=== PATIENT | male | born 1965 | race Caucasian/White ===

== ENCOUNTER → 2016-08-04 | Outpatient (CLI) | payer MEDICARE, BC ==
--- NOTE | 2016-08-04 10:44 | US ---
EXAMINATION TYPE: US venous doppler duplex LE LT DATE OF EXAM: 08/04/2016 10:21 AM COMPARISON: NONE CLINICAL HISTORY: M25.562 PAIN IN LEFT KNEE. Left calf swelling x 10 days post left knee arthroscopy SIDE PERFORMED: Left VESSELS IMAGED: Common Femoral Vein Deep Femoral Vein Greater Saphenous Vein * Femoral Vein Popliteal Vein Small Saphenous Vein * Proximal Calf Veins (* superficial vessels) TECHNOLOGIST IMPRESSION: wnl Left Leg: Negative for DVT. Long fluid collection is noted spanning from left medial popliteal fossa distally towards lower calf > 14cm. Complex fluid area noted in upper portion of fluid. Tech finding s called to Marielle at Dr Gayle Up's Office Satisfactory color flow, phasicity, compressibility is seen in the left lower extremity at the above levels. There is elongated thin-walled fluid collection beginning in the posterior medial popliteal f brayden extending into the left calf. Mild to moderate overlying diffuse subcutaneous edema is present. Consider resolving hematoma. Differential also includes leaking popliteal cyst. IMPRESSION: As above.
== END | disposition home or self-care (01) ==
LOC: RADUSWWP 09:17
PROVIDERS: ATTEND Orthopaedic Surgery
DX: M25.562 Pain in left knee (principal)

== ENCOUNTER → 2019-07-19 | Outpatient (CLI) | payer MEDICARE, BC ==
[2019-07-19 10:19] LABS: Appearance,Urine Clear (Clear); Bacteria,Urine Rare /hpf; Bilirubin,Urine Negative (Negative); Blood,Urine Small (Negative); Color,Urine Yellow; Glucose,Urine (UA) Negative (Negative); Ketones,Urine Negative (Negative); Leukocyte Esterase,Urine Negative (Negative); Mucus,Urine Occasional /hpf; Nitrite,Urine Negative (Negative); PH, Urine 5.5 (5.0-8.0); Protein,Urine Trace (Negative); RBC,Urine 4 /hpf (0-5); Specific Gravity,Urine 1.021 (1.001-1.035); Urobilinogen,Urine <2.0 mg/dL (<2.0); WBC,Urine 2 /hpf (0-5)
== END | disposition home or self-care (01) ==
LOC: LABPAT 09:14
PROVIDERS: ATTEND Orthopaedic Surgery
DX: Z01.812 Encounter for preprocedural laboratory examination (principal); Z79.01 Long term (current) use of anticoagulants
CPT/HCPCS: 81001; 87070

== ENCOUNTER → 2019-10-26 | Outpatient (CLI) | payer MEDICARE, BC ==
[2019-10-26 11:45] LABS: Prothrombin Time 10.7 sec (9.0-12.0)
[2019-10-26 12:21] LABS: HCT 46.6 % (39.0-53.0); HGB 16.5 gm/dL (13.0-17.5); MCHC 35.4 g/dL (31.0-37.0); MCV 90.3 fL (80.0-100.0); Mean Platelet Volume 7.6; Platelet Count 229 k/uL (150-450); RBC 5.15 m/uL (4.30-5.90); RDW 12.6 % (11.5-15.5); WBC 6.8 k/uL (3.8-10.6)
[2019-10-26 12:25] LABS: ALT 19 U/L (4-49); AST 21 U/L (17-59); African American GFR (CKD) >90 (>60 ml/min/1.73 sqM); Albumin 4.3 g/dL (3.5-5.0); Alkaline Phosphatase 48 U/L (38-126); Anion Gap 8 mmol/L; Blood Urea Nitrogen 14 mg/dL (9-20); Calcium 9.2 mg/dL (8.4-10.2); Carbon Dioxide 27 mmol/L (22-30); Chloride 104 mmol/L (98-107); Glucose 94 mg/dL (74-99); Non-African American GFR(CKD) >90 (>60 ml/min/1.73 sqM); Potassium 3.7 mmol/L (3.5-5.1); Sodium 139 mmol/L (137-145); Total Bilirubin 0.6 mg/dL (0.2-1.3); Total Protein 7.2 g/dL (6.3-8.2)
[2019-10-26 14:18] LABS: Appearance,Urine Clear (Clear); Bilirubin,Urine Negative (Negative); Blood,Urine Trace (Negative); Color,Urine Yellow; Glucose,Urine (UA) Negative (Negative); Hyaline Casts,Urine 1 /lpf (0-2); Ketones,Urine Negative (Negative); Leukocyte Esterase,Urine Negative (Negative); Mucus,Urine Moderate /hpf; Nitrite,Urine Negative (Negative); PH, Urine 5.5 (5.0-8.0); Protein,Urine Trace (Negative); RBC,Urine 4 /hpf (0-5); Specific Gravity,Urine 1.028 (1.001-1.035); Squamous Epithelial Cell,Urine <1 /hpf (0-4); Urobilinogen,Urine <2.0 mg/dL (<2.0); WBC,Urine 2 /hpf (0-5)
== END | disposition home or self-care (01) ==
LOC: LABPAT 10:27
PROVIDERS: ATTEND Orthopaedic Surgery
DX: Z01.818 Encounter for other preprocedural examination (principal); Z01.812 Encounter for preprocedural laboratory examination
CPT/HCPCS: 80053; 81001; 85027; 85610; 85730; 87070

== ENCOUNTER 2019-11-01 10:01 | Day surgery (SDC) | payer MEDICARE, BC ==
[2019-10-31 09:02] VITALS: BMI 33.7
[~2019-11-01 10:01] MED LIST: ACETAMINOPHEN TAB 500 MG TAB PO ONE; CLINDAMYCIN 900 MG in DEXTROSE 5% IN WATER 50 ML IVPB ONE; DEXAMETHASONE SOD PHOSPHATE 10 MG/ML 1 ML VIAL IV ONE; GABAPENTIN 300 MG CAP PO ONE; HYDROmorphone 0.5 MG/0.5 ML SYRINGE IVP PRN; LIDOCAINE 1% (10MG/ML) FOR IV START INTRADERMA PRN; MELOXICAM 7.5 MG TAB PO ONE; ONDANSETRON 4 MG/2 ML VIAL IVP ONE; SCOPOLAMINE 1.5MG/72HR PATCH TRANSDERM ONE; TRANEXAMIC ACID 1,000 MG in SODIUM CHLORIDE 0.9% 100 ML IVPB ONE
[2019-11-01] MEDS: LACTATED RINGERS 1,000 ML IV SCH (10:44)
[2019-11-01] MEDS ORDERED: MIDAZOLAM 2 MG/2 ML VIAL IV ONE (10:54)
[2019-11-01] MEDS ORDERED: HYDROmorphone 1 MG/ML 1 ML SYRINGE IVP PRN (11:18)
[2019-11-01] MEDS ORDERED: ONDANSETRON 4 MG/2 ML VIAL IVP PRN (11:18)
[2019-11-01] MEDS ORDERED: BISACODYL 10 MG SUPP RECTAL PRN (11:18)
[2019-11-01] MEDS ORDERED: NA PHOS,M-B/NA PHOS,DI-BA 133 ML ENEMA RECTAL PRN (11:18)
[2019-11-01] MEDS ORDERED: HYDROcodone/APAP 5-325MG 1 EACH TAB PO PRN ×2 (11:18)
[2019-11-01] MEDS ORDERED: NALOXONE 0.4 MG/ML 1 ML VIAL IV PRN (11:18)
[2019-11-01] MEDS ORDERED: MAGNESIUM HYDROXIDE 2,400 MG/10 ML CUP PO PRN (11:18)
[2019-11-01] MEDS ORDERED: HYDROmorphone 0.5 MG/0.5 ML SYRINGE IVP PRN ×2 (11:18)
[2019-11-01] MEDS ORDERED: DIAZEPAM 5 MG TAB PO PRN (11:18)
[2019-11-01] MEDS ORDERED: hydrOXYzine PAMOATE 25 MG CAP PO PRN (11:18)
--- NOTE | 2019-11-01 11:19 | P.ANPRN ---
Procedure Note - Anesthesia - Nerve Block Performed Left Adductor Canal Infusion Date of Procedure: 11/01/19 Procedure Start Time: 10:52 Procedure Stop Time: 11:00 Location of Patient: PreOp Indication: Acute Post-Operative Pain, Requested by Surgeon Sedation Type: Sedate with meaningful contact maintained Preparation: Sterile Prep, Sterile Dressing Position: Supine Catheter: Indwelling Needle Types: Pajunk Needle Gauge: 21 Ultrasound used to visualize needle placement: Yes Ultrasound used to observe medication spread: Yes Blood Aspirated: No Pain Paresthesia on Injection Noted: No Resistance on Injection: Normal Image Stored and Saved: Yes Events: Uneventful and Well Tolerated (Ropivacaine0.5% 25 mls)
[2019-11-01] MEDS ORDERED: ROPIVACAINE 0.2%-NS ON-Q PUMP 1,090 MG, EMPTY PAIN BALL 1 EACH MISCELLANE PRN (11:20)
[2019-11-01] MEDS ORDERED: MIDAZOLAM 2 MG/2 ML VIAL ONE (11:53)
[2019-11-01] MEDS ORDERED: TRANEXAMIC ACID 1,000 MG/10 ML VIAL ONE (11:53)
[2019-11-01] MEDS ORDERED: PROPOFOL 10 MG/ML 20 ML VIAL IV ONE (11:53)
[2019-11-01] MEDS ORDERED: fentaNYL (PF) 50 MCG/ML 2 ML AMP ONE (11:53)
[2019-11-01] MEDS ORDERED: hydrALAZINE HCL 20 MG/ML 1 ML VIAL ONE (11:53)
[2019-11-01] MEDS ORDERED: SODIUM CHLORIDE 0.9% 100 ML BAG ONE (11:53)
[2019-11-01] MEDS ORDERED: ceFAZolin 3,000 MG in SODIUM CHLORIDE 0.9% IRRIGATIO 3,000 ML IRRIGATION ONE (11:56)
[2019-11-01] MEDS: ROPIVACAINE 246.25 MG, EPINEPHrine 0.5 MG, KETOROLAC 30 MG, cloNIDine HCL/PF 80 MCG, WA... MISCELLANE ONE ×10 (12:21→12:49)
[2019-11-01] MEDS ORDERED: LACTATED RINGERS 1,000 ML IV ONE (12:27)
--- NOTE | 2019-11-01 13:18 | P.OP ---
Date of Procedure: 11/01/19 Preoperative Diagnosis: Severe osteoarthritis left knee Postoperative Diagnosis: Severe osteoarthritis left knee Procedure(s) Performed: Left total knee arthroplasty utilizing visionaire patient specific guides Implants: Gordon and Nephew Cruciate Retaining Journey II CR Oxinium Femoral Component size 7, left Gordon & Nephew Journey Nonporous Tibial Baseplate size 6, left Gordon [employer] Nephew Journey II CR, XLPE Articular Insert, 10 mm, size 5-6 Gordon & Nephew Ese II Resurfacing Patellar Component, Oval, 32 mm All components were cemented using Palacose R bone cement. Visionaire patient specific guides The articulation is Oxinium on polyethylene. Anesthesia: spinal Surgeon: Naren Up Molecular Geneticist #1: Tammy Sena Estimated Blood Loss (ml): 50 Pathology: other (Bone and cartilage) Condition: stable Disposition: PACU Indications for Procedure: After failure of conservative treatment we discussed the surgical and nonsurgical treatment options at length. Patient wishes to proceed with a total knee arthroplasty. Complications specific to this procedure were discussed at length, including but not limited to infection, bleeding, stiffness, and nerve injury. Covid-19 was also discussed at length with the patient, and they are aware of the current policies and procedures. The patient was given the option of delaying surgery, but they elect to proceed knowing these risks. Patient is aware of all these complications and informed consent was obtained Operative Findings: The operative findings are consistent with severe osteoarthritis of the left knee Description of Procedure: Patient was seen in the preoperative area consent was reviewed and operative site was marked with a skin marker. An adductor canal pain catheter was placed by anesthesia in the preoperative area. Patient was then brought to the operating room and given preoperative antibiotics intravenously. A spinal anesthetic was administered by the anesthesia department. A tourniquet was placed on the upper thigh and the lower extremity was prepped and draped in usual sterile fashion. A gram of transexamic acid was given. A universal timeout was then performed which confirmed the patient's name, surgical site, ALLERGIES, and consent. The lower extremity was then exsanguinated and tourniquet was inflated to 250 mmHg. A standard and anterior midline approach to the knee was performed. The skin and subcutaneous tissue was dissected down to the patellar tendon. A medial parapatellar arthrotomy was then performed. The knee was then extended, the patellar was everted, and the knee was again flexed. Anterior horns of both menisci were excised, and a release was performed to the posterior medial aspect of the knee. On gross visual inspection, there was complete loss of articular cartilage in the medial and patellofemoral joint spaces. There was also significant cartilage damage in the lateral compartment. There were multiple periarticular osteophytes. The patient specific guide was placed on the distal femur, and pinned in place. Using the patient specific guide, the distal femoral cut was performed. The cutting block was then removed and the cut was checked for flatness. The appropriate 5-in-1 cutting block was then pinned in place through the holes that were drilled through the patient specific guide. The anterior condyles were cut without notching. The posterior and chamfer cuts were performed while protecting the collateral ligaments. The cutting block was then removed. Attention was then directed to the tibia. The remaining ACL was removed with a Ronguer, and the tibia was then gently subluxed forward with a large bent knee retractor. Any remaining menisci was excised. The posterior lateral corner was cauterized in order to cauterize the lateral geniculate artery. The patient specific guide for the tibia was then placed and was held in place with pins. Pinholes were then placed for rotation of the tibial component as well. Proximal tibia was then cut and sized. Next trials were then placed with the appropriate-sized insert. The knee was able to fully extend and flex to 130 and was stable throughout all range of motion. The knee was then extended, patella everted. Patella was then measured, and then using an osteotomy guide, the patella was cut at the appropriate level. The patella was then measured and drilled and the patella trial was then placed. The knee was then taken through range of motion with the patella trial and the patella tracked normally. The knee was then extended patella trial was then removed and the patella was everted. Knee was then flexed and lug holes were drilled through the femoral trial and the femoral trial was then removed. The tibial was then exposed, and the tibial broach guide was then pinned in place after it was set for the appropriate rotation to allow for the most coverage without overhang. The tibia was then reamed and broached. The cut surfaces of bone were then irrigated with pulsatile lavage. The posterior structures were injected with the ropivacaine solution. The knee was also irrigated with Irrisept solution. The components were then opened, the cement was mixed, and the components were then cemented in place. The cement was allowed to harden with the knee in full extension. While the cement was hardening, the remaining soft tissues were then injected with a ropivacaine solution, which consisted of 246.25 mg of ropivacaine, 0.5 mg of epinephrine, 30 mg of Toradol, 80 g of clonidine, and 48.45 mL of sterile water, for a total of 100 mL of fluid injected. After the cemented hardened. The tourniquet was released, and hemostasis was obtained. A second gram of transexamic acid was given. The knee was again irrigated. The knee was again taken through range of motion and found to be stable throughout all range of motion of 0-130, and the patella tracked normally. The fascia was then closed with #2 strata fix suture. The subcutaneous tissue was closed with 3-0 Vicryl and 3-0 strata fix. Dermabond glue was used for the skin and placed with the knee in flexion. The patient was placed in a sterile silver dressing. Patient was then transferred to recovery room in stable condition. The licensed physical therapist assistant GRECIA Cronin was required due the complexity surgery and the need for a skilled salesperson surgical appliances. She assisted in positioning, draping, retraction, and closure of the wound.
--- NOTE | 2019-11-01 13:47 | XR ---
EXAMINATION TYPE: XR knee limited LT DATE OF EXAM: 11/01/2019 COMPARISON: None HISTORY: Postop knee replacement TECHNIQUE: 2 view left knee FINDINGS: Tibial and femoral components of in place. No acute fractures are evident. Postsurgical guera nges are present. IMPRESSION: 1. No acute fractures post knee replacement.
[2019-11-01] MEDS: SODIUM CHLORIDE 0.9% 1,000 ML IV SCH ×3 (14:54→23:38)
[2019-11-01] MEDS: CLINDAMYCIN 900 MG in DEXTROSE 5% IN WATER 50 ML IVPB SCH ×4 (17:58→23:39)
[2019-11-01] MEDS: ASPIRIN 325 MG TAB PO SCH (20:48)
[2019-11-01] MEDS ORDERED: SENNOSIDES-DOCUSATE SODIUM 1 EACH TAB PO SCH (21:00)
[2019-11-01] MEDS ORDERED: ESCITALOPRAM 5 MG TAB PO SCH (21:00)
--- NOTE | 2019-11-02 01:30 | P.CONS ---
History of Present Illness - Reason for Consult Consult date: 11/01/19 Medical management - Chief Complaint Elective left total knee arthroplasty - History of Present Illness Patient is a 54-year-old male with a known history of hypertension, osteoarthritis and previous history of right total knee arthroplasty x2 and obesity was admitted to hospital for left total knee arthroplasty. Currently patient is lying in the bed comfortably. Denied any complaints of chest pain or shortness breath. denied any left leg pain currently. On morphine pump. No complaints of dizziness or lightheadedness. No nausea vomiting or abdominal pain or diarrhea. Postoperatively patient's blood pressure is on the lower side. Patient did take his Cardizem and hydrochlorothiazide dose this morning. Review of Systems Constitutional: Patient denies any fever or chills . No generalized weakness or weight loss. Abdomen: Patient denied nausea vomiting and diarrhea and abdominal pain. Cardiovascular: Patient denies any chest pain or short of breath no palpitations. Respiratory: patient denied any cough is from production. No shortness of breath Neurologic: Patient denied any numbness or tingling headache. Musculoskeletal: Patient denies any complaints of joint swelling or deformity. Skin: negative Psychiatric: Negative Endocrine: No heat or cold intolerance. No recent weight gain. Genitourinary: No dysuria or hematuria. All other 14 point ROS negative except the above Past Medical History Past Medical History: Hypertension, Osteoarthritis (OA) Additional Past Medical History / Comment(s): . History of Any Multi-Drug Resistant Organisms: None Reported Past Surgical History: Hernia Repair, Joint Replacement, Orthopedic Surgery Additional Past Surgical History / Comment(s): ARTHROSCOPIES RT KNEE x 3, RT KNEE REPLACED X2, arthroscopy left knee, Past Anesthesia/Blood Transfusion Reactions: Previous Problems w/ Anesthesia Additional Past Anesthesia/Blood Transfusion Reaction / Comm: HAD POST OP ITCHING AFTER ONE SURGERY Smoking Status: Never smoker - Past Family History Mother Family Medical History: No Reported History Medications and Allergies Home Medications Medication Instructions Recorded Confirmed Type Diltiazem HCl [Cartia Xt] 300 mg PO DAILY 08/02/19 11/01/19 History Escitalopram [Lexapro] 5 mg PO HS 08/02/19 11/01/19 History Fluticasone Nasal [place] [Flonase 1 spray EA NOSTRIL DAILY 08/02/19 11/01/19 History Nasal [place]] Diclofenac Sodium Gel [Voltaren 2 gm TOPICAL DIRECTED PRN 10/31/19 11/01/19 History Gel] Hydrochlorothiazide 12.5 mg PO DAILY 10/31/19 11/01/19 History Loratadine [Claritin] 10 mg PO DAILY 10/31/19 11/01/19 History Naproxen Sodium [Aleve] 220 mg PO Q12HR PRN 10/31/19 11/01/19 History Allergies Allergy/AdvReac Type Severity Reaction Status Date / Time cephalexin monohydrate Allergy Severe Dyspnea Verified 11/01/19 10:25 [From Keflex] Penicillins Allergy Severe Dyspnea Verified 11/01/19 10:25 Physical Exam Vitals: Vital Signs Temp Pulse Pulse Resp BP BP Pulse Ox 11/01/19 14:15 74 16 115/65 100 11/01/19 14:00 69 16 115/65 99 11/01/19 13:45 74 18 122/74 94 L 11/01/19 13:30 97.7 F 98 16 141/75 93 L 11/01/19 11:09 78 16 146/86 100 11/01/19 10:55 77 18 152/85 100 11/01/19 10:28 97.1 F L 71 18 125/84 96 Intake and Output 10/31/19 11/01/19 11/01/19 22:59 06:59 14:59 Intake Total 1577 Output Total 50 Balance 1527 Intake: IV 1577 Output: Estimated Blood Loss 50 Other: Weight 107 kg PHYSICAL EXAMINATION: Patient is lying in the bed comfortably, no acute distress, awake alert and oriented.. HEENT: Normocephalic. Neck is supple. Pupils reactive. Nostrils clear. Oral cavity is moist. Ears reveal no drainage. Neck reveals no JVD, carotid bruits, or thyromegaly. CHEST EXAMINATION: Trachea is central. Symmetrical expansion. Lung campa clear to auscultation and percussion. CARDIAC: Normal S1, S2 with no gallops. No murmurs ABDOMEN: Soft. Bowel sounds normal. No organomegaly. No abdominal bruits. right upperinner thighabscess with purulent drainage and surrounding redness, swelling and induration. Moderate tenderness. Extremities: reveal no edema. No clubbing or cyanosis Neurologically awake, alert, oriented x3 with well-coordinated movements. No focal deficits noted Skin: No rash or skin lesions. Psychiatric: Coperative. Nonsuicidal Musculoskeletal: No joint swelling or deformity.Left knee surgical site is intact. Bandage. Decreased range of motion. Assessment and Plan Assessment: Status post left total knee arthroplasty. POD #0 Osteoarthritis History of right total knee arthroplasty x2 Hypertension currently controlled DVT prophylaxis Obesity with BMI 33.8 Plan: Patient will be continued pain management, bowel regimen and DVT prophylaxis. Encourage ambulation and incentive spirometry. PT OT will be consulted. Monitor H&H and follow-up labs tomorrow. Further recommendations based on clinical course. Thank you for your consult.
[2019-11-02] MEDS: LACTATED RINGERS 1,000 ML IV SCH (06:14)
--- NOTE | 2019-11-02 06:44 | P.PN ---
Progress Note - Text Progress Note Date: 11/02/19 The patient is doing well status post total knee replacement. Pain is well con trolled by a combination of local anesthetic infusion through the adductor canal catheter and oral analgesics. There are no signs of infection around the catheter skin entry site. I interviewed the patient while he was walking in the hallway with no pain complaints. The local anesthetic infusion will be continued as per protocol.
[2019-11-02 07:59] LABS: Basophils % (A) 0 %; Eosinophils % (A) 0 %; HCT 41.7 % (39.0-53.0); HGB 14.1 gm/dL (13.0-17.5); Lymphocytes % (A) 4 %; MCH 31.1 pg (25.0-35.0); MCHC 33.7 g/dL (31.0-37.0); MCV 92.2 fL (80.0-100.0); Mean Platelet Volume 7.8; Monocytes # (A) 1.2 k/uL (0-1.0); Monocytes % (A) 6 %; Neutrophils % (A) 89 %; Platelet Count 219 k/uL (150-450); RBC 4.52 m/uL (4.30-5.90); RDW 12.6 % (11.5-15.5); WBC 22.5 k/uL (3.8-10.6)
[2019-11-02 08:02] VITALS: BP 135/84; RESP 18; TEMP 97.6
[2019-11-02] MEDS: ASPIRIN 325 MG TAB PO SCH (08:08)
[2019-11-02 08:54] VITALS: PULSE 77
--- NOTE | 2019-11-02 08:56 | P.DS ---
Providers Expected date of discharge: 11/02/19 Attending physician: Naren Up Consults: 11/01/19 11:18 Consult Physician Routine Consulting Provider: Katelyn Mac Consult Reason/Comments: medical management Do you want consulting provider notified?: Yes Primary care physician: Rafael Marcos - Discharge Diagnosis(es) (1) Osteoarthritis of left knee Current Visit: Yes Status: Acute (2) Status post total left knee replacement Current Visit: Yes Status: Acute Hospital Course: This is a 54-year-old male with known history of degenerative arthritis of the left knee. The patient presents for evaluation. After discussion and consideration patient elected to proceed with total knee arthroplasty. The patient is seen preoperatively by Dr. Up and medically cleared for surgery by their primary care physician. Patient is admitted to [facility] on 11/01/2019 for total knee arthroplasty. The procedures performed without complication or sequelae. The patient is doing well postoperatively. Labs and vital signs are stable on day of discharge. On day of discharge patient's knee incision is healing well. There is minimal erythema. There is no drainage noted at this time. There is minimal soft tissue swelling to the knee. Patient has full foot and ankle motion without difficulty or pain. Calf is soft and nontender to palpation. Neurovascular status to the left lower extremity is intact. Patient is discharged home in good condition. Opioid start talking form is reviewed and signed at patient bedside. Please see med rec for accurate list of home medications. Plan - Discharge Summary Discharge Rx Participant: Yes New Discharge Prescriptions: New Aspirin 325 mg PO BID #60 tab HYDROcodone/APAP 5-325MG [[place] 5-325] 1 - 2 tab PO Q6HR PRN #56 tab PRN Reason: Pain Sennosides [Senokot] 2 tab PO DAILY PRN #60 tablet PRN Reason: Constipation No Action Diltiazem HCl [Cartia Xt] 300 mg PO DAILY Escitalopram [Lexapro] 5 mg PO HS Fluticasone Nasal [place] [Flonase Nasal [place]] 1 spray EA NOSTRIL DAILY Loratadine [Claritin] 10 mg PO DAILY Hydrochlorothiazide 12.5 mg PO DAILY Naproxen Sodium [Aleve] 220 mg PO Q12HR PRN PRN Reason: Pain Diclofenac Sodium Gel [Voltaren Gel] 2 gm TOPICAL DIRECTED PRN PRN Reason: Pain Discharge Medication List Diltiazem HCl [Cartia Xt] 300 mg PO DAILY 08/02/19 [History] Escitalopram [Lexapro] 5 mg PO HS 08/02/19 [History] Fluticasone Nasal [place] [Flonase Nasal [place]] 1 spray EA NOSTRIL DAILY 08/02/19 [History] Diclofenac Sodium Gel [Voltaren Gel] 2 gm TOPICAL DIRECTED PRN 10/31/19 [History] Hydrochlorothiazide 12.5 mg PO DAILY 10/31/19 [History] Loratadine [Claritin] 10 mg PO DAILY 10/31/19 [History] Naproxen Sodium [Aleve] 220 mg PO Q12HR PRN 10/31/19 [History] Aspirin 325 mg PO BID #60 tab 11/02/19 [Rx] HYDROcodone/APAP 5-325MG [[place] 5-325] 1 - 2 tab PO Q6HR PRN #56 tab 11/02/19 [Rx] Sennosides [Senokot] 2 tab PO DAILY PRN #60 tablet 11/02/19 [Rx] Follow up Appointment(s)/Referral(s): Naren Up DO [Doctor of Osteopathic Medicine] - 1 Week Patient Instructions/Handouts: *Surgery [facility] - On-Q Pain Pump Discharge Instructions, Knee Replacement (DC) Activity/Diet/Wound Care/Special Instructions: Weightbearing as tolerated with a walker. CPM 5-6h daily. Leave dressing intact. May be removed by home care nurse or by patient in 10 days. May shower with dressing on. Recommend use of compression stockings daily until follow up to help prevent swelling and blood clots. May remove at night before sleeping. Please follow up with [facility] and call with any questions or concerns, . Discharge Disposition: HOME WITH HOME HEALTH SERVICES
[2019-11-02] MEDS ORDERED: LORATADINE 10 MG TAB PO SCH (09:00)
[2019-11-02] MEDS ORDERED: DILTIAZEM CD 300 MG CAP.ER.24H PO SCH (09:00)
[2019-11-02] MEDS ORDERED: FLUTICASONE 50MCG/SPRAY NASAL 16GM EA NOSTRIL SCH (09:00)
[2019-11-02] MEDS ORDERED: MELOXICAM 7.5 MG TAB PO SCH (09:00)
--- NOTE | 2019-11-02 16:35 | P.PN ---
Subjective Progress Note Date: 11/02/19 Principal diagnosis: Patient is a 54-year-old male with a known history of hypertension, osteoarthritis and previous history of right total knee arthroplasty x2 and obesity was admitted to hospital for left total knee arthroplasty. Currently patient is lying in the bed comfortably. Denied any complaints of chest pain or shortness breath. denied any left leg pain currently. On morphine pump. No complaints of dizziness or lightheadedness. No nausea vomiting or abdominal pa in or diarrhea. Postoperatively patient's blood pressure is on the lower side. Patient did take his Cardizem and hydrochlorothiazide dose this morning. 11/02/2019 Patient is seen and evaluated in follow-up with no acute overnight issues. Patient underwent left total knee arthroplasty with Dr. Up yesterday. Currently no reports of chest pain, shortness of breath, or palpitations. Patient is afebrile. No reports of nausea or vomiting and patient is tolerating diet. Patient states he is passing gas although has not had a bowel movement yet. Patient's home medications will be resumed. Patient will be continuing with home care and physical therapy and then outpatient physical therapy as needed. Patient does have a subcutaneous epidural pain pump noted and states his pain is being managed. Patient states he is being discharged today. Objective - Vital Signs Vital signs: Vital Signs Temp 97.6 F 11/02/19 07:00 Pulse 77 11/02/19 08:00 Resp 18 11/02/19 08:00 BP 135/84 11/02/19 07:00 Pulse Ox 96 11/02/19 07:00 Intake & Output 11/01/19 11/02/19 11/02/19 18:59 06:59 18:59 Intake Total 1577 Output Total 50 375 Balance 1527 -375 Weight 107 kg Intake: IV 1577 Output: Urine 375 Estimated Blood Loss 50 Other: Voiding Method Urinal Urinal # Voids 1 1 - Exam Patient is sitting up in the bed comfortably, no acute distress, awake alert and oriented.. HEENT: Normocephalic. Neck is supple. Pupils reactive. Nostrils clear. Oral cavity is moist. Ears reveal no drainage. Neck reveals no JVD, carotid bruits, or thyromegaly. CHEST EXAMINATION: Trachea is central. Symmetrical expansion. Lung campa clear to auscultation and percussion. CARDIAC: Normal S1, S2 with no gallops. No murmurs ABDOMEN: Soft. Bowel sounds normal. No organomegaly. No abdominal bruits. Extremities: reveal no edema. No clubbing or cyanosis Neurologically awake, alert, oriented x3 with well-coordinated movements. No focal deficits noted Skin: No rash or skin lesions. Psychiatric: Cooperative. Non-suicidal Musculoskeletal: No joint swelling or deformity. Left knee surgical site is intact. Bandage. Normal range of motion noted today. Subcutaneous epidural pump noted also - Labs CBC & Chem 7: 11/02/19 06:50 Labs: Abnormal Lab Results - Last 24 Hours (Table) 11/02/19 Range/Units 06:50 WBC 22.5 H (3.8-10.6) k/uL Neutrophils # 20.0 H (1.3-7.7) k/uL Monocytes # 1.2 H (0-1.0) k/uL Assessment and Plan Assessment: Status post left total knee arthroplasty. POD #1 Osteoarthritis History of right total knee arthroplasty x2 Hypertension currently controlled DVT prophylaxis Obesity with BMI 33.8 Plan: Patient will be continued pain management, bowel regimen and DVT prophylaxis. Encourage ambulation and incentive spirometry. PT/OT evaluated the patient stating outpatient physical therapy would be of benefit. Hemoglobin is stable at 14.1 this morning. Further recommendations based on clinical course. We'll continue to follow with orthopedic surgery and hospitalization. Home medications are being resumed. Patient states he is being discharged today.
== END 2019-11-02 10:57 | disposition home health service (06) ==
LOC: OR 10:01 → 4SSUR 13:26 → OR 11-02 10:57
PROVIDERS: ATTEND Orthopaedic Surgery
DX: M17.12 Unilateral primary osteoarthritis, left knee (principal); I10 Essential (primary) hypertension; F41.9 Anxiety disorder, unspecified; Z96.651 Presence of right artificial knee joint; E66.9 Obesity, unspecified; Z68.33 Body mass index [BMI] 33.0-33.9, adult; Z82.49 Family history of ischemic heart disease and other diseases of the circulatory system; Z88.1 Allergy status to other antibiotic agents; Z79.1 Long term (current) use of non-steroidal anti-inflammatories (NSAID); Z79.899 Other long term (current) drug therapy; Z88.0 Allergy status to penicillin
CPT/HCPCS: 27447; 97161; 64448; 76942; 85025; 88300; 73560; C1713; C1776; J2250; J0171; J0360; J1100; J2405; J0690; J3010; J1885; J2795 ×2; J2704; J0735

== ENCOUNTER 2022-08-05 11:10 | Inpatient (IN) | payer MEDICARE, BC ==
[2022-07-29 16:21] VITALS: BMI 35.2
[~2022-08-05 11:10] MED LIST changes: -ACETAMINOPHEN TAB 500 MG TAB PO ONE; +ACETAMINOPHEN TAB 500 MG TAB PO PRN; -CLINDAMYCIN 900 MG in DEXTROSE 5% IN WATER 50 ML IVPB ONE; -DEXAMETHASONE SOD PHOSPHATE 10 MG/ML 1 ML VIAL IV ONE; -GABAPENTIN 300 MG CAP PO ONE; +GABAPENTIN 300 MG CAP PO PRN; -LIDOCAINE 1% (10MG/ML) FOR IV START INTRADERMA PRN; -MELOXICAM 7.5 MG TAB PO ONE; +MELOXICAM 7.5 MG TAB PO PRN; -SCOPOLAMINE 1.5MG/72HR PATCH TRANSDERM ONE; -TRANEXAMIC ACID 1,000 MG in SODIUM CHLORIDE 0.9% 100 ML IVPB ONE; +TRANEXAMIC ACID IN NACL,ISO-OS 1,000 MG in SALINE 1 100ML.BAG IVPB PRN
[2022-08-05] MEDS ORDERED: LIDOCAINE 1% (10MG/ML) FOR IV START INTRADERMA ONE (12:25)
[2022-08-05] MEDS: LACTATED RINGERS 1,000 ML IV SCH ×2 (12:25→21:48)
[2022-08-05] MEDS ORDERED: DEXAMETHASONE SOD PHOSPHATE 4 MG/ML 1 ML VIAL IV ONE (12:55)
[2022-08-05] MEDS ORDERED: fentaNYL (PF) 50 MCG/ML 2 ML AMP IV ONE ×2 (13:21→13:35)
[2022-08-05] MEDS ORDERED: MIDAZOLAM 2 MG/2 ML VIAL IV ONE (13:21)
[2022-08-05] MEDS ORDERED: CLINDAMYCIN 900 MG in DEXTROSE 5% IN WATER 50 ML IVPB STA ×2 (13:25)
[2022-08-05] MEDS ORDERED: SODIUM CHLORIDE 0.9% (PF) 10 ML VIAL ONE (13:33)
[2022-08-05] MEDS ORDERED: MIDAZOLAM 2 MG/2 ML VIAL ONE (13:33)
[2022-08-05] MEDS ORDERED: PROPOFOL 10 MG/ML 20 ML VIAL IV ONE (13:33)
[2022-08-05] MEDS ORDERED: fentaNYL (PF) 50 MCG/ML 2 ML AMP ONE (13:33)
[2022-08-05] MEDS ORDERED: ROPIVACAINE 5 MG/ML 30 ML VIAL ONE (13:33)
[2022-08-05] MEDS ORDERED: PHENYLEPHRINE-0.9% NACL SYG 1,000 MCG/10 ML SYRINGE ONE (13:33)
[2022-08-05] MEDS ORDERED: TRANEXAMIC ACID IN NACL,ISO-OS 1,000 MG/100 ML BAG ONE (13:33)
[2022-08-05] MEDS ORDERED: ONDANSETRON 4 MG/2 ML VIAL IVP PRN (13:49)
[2022-08-05] MEDS ORDERED: NA PHOS,M-B/NA PHOS,DI-BA 133 ML ENEMA RECTAL PRN (13:49)
[2022-08-05] MEDS ORDERED: HYDROmorphone 0.5 MG/0.5 ML SYRINGE IVP PRN ×2 (13:49)
[2022-08-05] MEDS ORDERED: MAGNESIUM HYDROXIDE 2,400 MG/10 ML CUP PO PRN (13:49)
[2022-08-05] MEDS ORDERED: HYDROmorphone 1 MG/ML 1 ML SYRINGE IVP PRN (13:49)
[2022-08-05] MEDS ORDERED: bisacodyL 10 MG SUPP RECTAL PRN (13:49)
[2022-08-05] MEDS ORDERED: NALOXONE 0.4 MG/ML 1 ML VIAL IV PRN (13:49)
[2022-08-05] MEDS ORDERED: HYDROcodone/APAP 7.5-325MG 1 EACH TAB PO PRN ×2 (13:51)
--- NOTE | 2022-08-05 14:14 | P.ANPRN ---
Procedure Note - Anesthesia - Nerve Block Performed Left Adductor Canal Infusion Time Out Performed: Yes (1321) Date of Procedure: 08/05/22 Procedure Start Time: : Procedure Stop Time: : Location of Patient: PreOp Indication: Acute Post-Operative Pain, Requested by Surgeon Specifically requested for management of pain by DrStephanie: Naren Up Sedation Type: Sedate with meaningful contact maintained Preparation: Sterile Prep, Sterile Dressing Position: Supine Catheter: None Needle Types: Pajunk Needle Gauge: 18 Ultrasound used to visualize needle placement: Yes Ultrasound used to observe medication spread: Yes Injectate: 0.5% Ropivacaine (see comment for volume) (15cc+ 5cc nacl pf) Blood Aspirated: No Pain Paresthesia on Injection Noted: No Resistance on Injection: Normal Image Stored and Saved: Yes Events: Uneventful and Well Tolerated
--- NOTE | 2022-08-05 14:15 | P.ANPRN ---
Procedure Note - Anesthesia - Nerve Block Performed Left iPack Single Time Out Performed: Yes ([id number]) Date of Procedure: 08/05/22 Procedure Start Time: Procedure Stop Time: Location of Patient: PreOp Indication: Acute Post-Operative Pain, Requested by Surgeon Specifically requested for management of pain by DrStephanie: Naren Up Sedation Type: Sedate with meaningful contact maintained Preparation: Sterile Prep Position: Supine Catheter: None Needle Types: Pajunk Needle Gauge: 21 Ultrasound used to visualize needle placement: Yes Ultrasound used to observe medication spread: Yes Injectate: 0.5% Ropivacaine (see comment for volume) (15cc+5cc nacl pf) Blood Aspirated: No Pain Paresthesia on Injection Noted: No Resistance on Injection: Normal Image Stored and Saved: Yes Events: Uneventful and Well Tolerated
--- NOTE | 2022-08-05 14:26 | P.OP ---
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 He has subsequently developed posterior instability and on exam is felt that his posterior cruciate ligament has lost function. Surgical nonsurgical treatment options discussed at length, I recommended exchange and his cruciate retaining liner for a deep dish polyethylene liner in order to accommodate his deficient PCL. Patient is agreeable to this informed consent was obtained. Operative Findings: The operative findings are consistent with a posterior cruciate ligament deficient knee. The implants were all found to be stable. Description of Procedure: Patient was seen in the preoperative area and the consent was reviewed and the operative site was marked with a skin marker. The patient verified the procedure and the operative site. An adductor canal pain catheter and an IPACK block were placed by anesthesia in the preoperative area. The patient was then brought to the operating room and positioned on the operating room table in the supine position. Preoperative antibiotics and a gram of transexamic acid were given intravenously. A spinal anesthetic was administered by the anesthesia department. Care was taken to make sure that all pressure points were adequately padded. A tourniquet was placed on the upper thigh and the lower extremity was prepped with ChloraPrep and draped in usual sterile fashion. A universal timeout was then performed which confirmed the patient's name, surgical site, ALLERGIES, and consent. The lower extremity was then exsanguinated and tourniquet was inflated to 250 mmHg. A standard anterior midline approach to the knee was performed. The prior scar was excised. The skin and subcutaneous tissue were sharply dissected down to the patellar tendon. A medial parapatellar arthrotomy was then performed. The knee was then extended, the patellar was everted, and the knee was flexed. The knee was then inspected and the femoral and tibial components were found be well fixed. The CR tibial insert was then easily removed with an osteotome. The knee was then trialed with a deep dished insert which significantly improved anterior posterior stability of the knee. The trial was then removed and the final implant was impacted with component locking being confirmed. The knee was taken through a full range of motion and found to have good medial lateral and anterior posterior stability throughout range of motion from 0-130. A second gram of transexamic acid was given intravenously. The knee was again irrigated. The knee was again taken through range of motion and found to be stable throughout all range of motion of 0-130, and the patella tracked normally. The fascia was then closed with 0 Vicryl followed by #2 strata fix suture. The subcutaneous tissue was closed with 3-0 Vicryl and 3-0 strata fix. Exofin glue was used for the skin and placed with the knee in flexion. After the glue had dried, and Optafoam silver impregnated dressing was applied. A lightly compressive dressing was applied using web roll and Angel wrap. Patient was then transferred to the stretcher and taken to recovery room in stable condition. Sponge and needle counts were correct. The central supply assistant GRECIA Cronin was required due the complexity surgery and the need for a skilled surgical elastic knitter hand frame. She assisted in positioning, draping, retraction, and closure of the wound.
[2022-08-05] MEDS ORDERED: LACTATED RINGERS 1,000 ML IV ONE (15:06)
[2022-08-05] MEDS ORDERED: ROPIVACAINE 1,100 MG, SODIUM CHLORIDE 0.9% 500 ML 330 ML, EMPTY PAIN BALL 1 EACH MISCELLANE PRN ×2 (15:21)
--- NOTE | 2022-08-05 15:45 | XR ---
EXAMINATION TYPE: XR knee limited LT DATE OF EXAM: 08/05/2022 3:40 PM INDICATION: Patient age:Male; 57 years old; Reason for study: Evaluation for Postop abnormality and alignment; [facility]. COMPARISON: Left knee radiographs 11/01/2019 TECHNIQUE: The Left knee(s) was examined in frontal and crosstable lateral projections. FINDINGS: Post surgical changes from left total knee arthroplasty. The distal femoral and proximal tibial components appear intact with appropriate alignment. There is associated soft tissue gas and e koffi. No acute fracture or dislocation. IMPRESSION: Postsurgical changes from left total knee arthroplasty. Hardware appears intact with appropriate alig nment.
--- NOTE | 2022-08-05 18:27 | P.CONS ---
History of Present Illness - Reason for Consult Consult date: 08/05/22 Radical management Requesting physician: Naren Up - History of Present Illness History of Presenting Illness: Patient is a very pleasant 57-year-old male with a past medical history of hypertension and osteoarthritis status post multiple previous orthopedic surgeries. He is currently admitted under orthopedic surgery team status post elective left total knee arthroplasty completed by Dr. Up. We have been consulted for medical management throughout patient's hospitalization. Patient seen and fully evaluated at bedside. He currently denies having any complaints. He reports postoperative pain is currently controlled he is still having slight numbness in left lower extremity from nerve block received during surgical procedure. Patient denies having any headache, lightheadedness, dizziness, chest pain, palpitations, shortness of breath, or experiencing any other complaints at this time. He denies having any postoperative nausea or vomiting and denies having any history of DVT or PE. Review of systems: Pertinent positives and negatives as discussed in HPI, a complete review of syst ems was performed and all other systems are negative. Physical exam: Vital signs reviewed and stable. General: Nontoxic, no distress and appears stated age. Derm: Skin warm and dry, normal coloration for ethnicity. Head: Atraumatic, normocephalic and symmetric. Eyes: EOMs intact, no lid lag, and anicteric sclera Mouth: no lip lesions, mucus membranes moist Cardiovascular: regular rate and rhythm with normal S1S2, no murmur, positive posterior tibial pulses bilaterally, and cap refill < 2 seconds. Lungs: Respirations even, regular, and unlabored on room air. Lungs CTA bilaterally, no rhonchi, no rales, no wheezing, and no accessory muscle usage. Abdominal: soft, nontender to palpation, no guarding, no appreciable organomegaly Ext: Movement and sensation intact. No gross muscle atrophy, no edema, no contractures. Postoperative Dressing in place to left lower extremity. Neuro: Speech clear, face symmetrical and CN II-XII grossly intact with no noted focal neuro deficits Psych: Alert and oriented to person, place, time, and situation. Appropriate and pleasant affect. Assessment and Plan of Care: Status post left total knee arthroplasty -DVT prophylaxis, pain management, wound/dressing care, weightbearing, and PT/OT per primary admitting orthopedic surgery team. -Currently DVT prophylaxis with MITUL hose and SCDs. -Previous labs reviewed. Preoperative CBC and CMP were unremarkable. Preoperative hemoglobin was 16.3. Order morning CBC and BMP to follow up on postoperative labs. Hypertension -Blood Pressures have been running soft after surgery with current BP 110/70. Preoperative blood pressure 157/90 and postoperatively systolic pressure ranging from 107-110 systolic and 66-70 diastolic. Order placed for patient to resume Cardizem 300 mg daily and hydrochlorothiazide 25 mg daily tomorrow morning. Thank you for allowing us to participate in the care of this pleasant patient. Do not hesitate to contact us with questions. Someone can be reached from the [facility] hospitalist group all hours of the day at [phone] or via [employer]. Flash Loera NP rendered care for this patient independently, reviewed the findings and plan as documented in the note above. I did not physically speak with or examine the patient on this date. Past Medical History Past Medical History: Hypertension, Osteoarthritis (OA) Additional Past Medical History / Comment(s): . History of Any Multi-Drug Resistant Organisms: None Reported Past Surgical History: Hernia Repair, Joint Replacement, Orthopedic Surgery Additional Past Surgical History / Comment(s): ARTHROSCOPIES RT KNEE x 3, RT KNEE REPLACED X2, arthroscopy left knee, LT TKA X 2 Past Anesthesia/Blood Transfusion Reactions: Previous Problems w/ Anesthesia Additional Past Anesthesia/Blood Transfusion Reaction / Comm: HAD POST OP ITCHING AFTER ONE SURGERY Smoking Status: Never smoker - Past Family History Mother Family Medical History: No Reported History Father Family Medical History: Cancer Medications and Allergies Home Medications Medication Instructions Recorded Confirmed Type Escitalopram [Lexapro] 5 mg PO HS 08/02/19 07/29/22 History dilTIAZem HCL [Cartia Xt] 300 mg PO DAILY 08/02/19 08/05/22 History Naproxen Sodium [Aleve] 220 mg PO Q12HR PRN 10/31/19 07/29/22 History hydroCHLOROthiazide 12.5 mg PO DAILY 10/31/19 07/29/22 History Aspirin 325 mg PO BID #60 tab 08/05/22 Rx HYDROcodone/APAP 7.5-325MG [[place] 1 - 2 tab PO Q6H PRN #32 tab 08/05/22 Rx 7.5-325] Sennosides [Senokot] 2 tab PO DAILY PRN #60 tablet 08/05/22 Rx Allergies Allergy/AdvReac Type Severity Reaction Status Date / Time cephalexin monohydrate Allergy Severe Dyspnea Verified 07/29/22 16:12 [From Keflex] Penicillins Allergy Severe Dyspnea Verified 07/29/22 16:12 Physical Exam Osteopathic Statement: *. No significant issues noted on an osteopathic structural exam other than those noted in the History and Physical/Consult. Vitals: Vital Signs Temp Pulse Pulse Resp BP Pulse Ox 08/05/22 15:45 59 L 16 110/70 95 08/05/22 15:30 50 L 16 107/69 95 08/05/22 15:15 52 L 16 110/70 95 08/05/22 15:00 52 L 16 108/67 92 L 08/05/22 14:55 96.9 F L 65 12 107/66 92 L 08/05/22 13:35 71 16 133/78 92 L 08/05/22 12:16 97.7 F 66 16 157/90 97 Intake and Output 08/05/22 08/05/22 08/05/22 06:59 14:59 22:59 Intake Total 1056 Output Total 30 Balance 1026 Intake: IV 1056 Output: Estimated Blood Loss 30 Other: Weight 105.3 kg
[2022-08-05] MEDS: CLINDAMYCIN 900 MG in DEXTROSE 5% IN WATER 50 ML IVPB SCH ×2 (18:35)
[2022-08-05] MEDS: ASPIRIN 325 MG TAB PO SCH (20:27)
[2022-08-05] MEDS ORDERED: SENNOSIDES-DOCUSATE SODIUM 1 EACH TAB PO SCH (21:00)
[2022-08-05] MEDS ORDERED: ESCITALOPRAM 5 MG TAB PO SCH (21:00)
[2022-08-05] MEDS: SODIUM CHLORIDE 0.9% 1,000 ML IV SCH (21:48)
[2022-08-05] MEDS ORDERED: HYDROcodone/APAP 5-325MG 1 EACH TAB PO PRN (21:49)
[2022-08-05] MEDS: HYDROcodone/APAP 5-325MG 1 EACH TAB PO PRN (22:12)
[2022-08-06] MEDS: CLINDAMYCIN 900 MG in DEXTROSE 5% IN WATER 50 ML IVPB SCH ×2 (01:54)
[2022-08-06] MEDS: SODIUM CHLORIDE 0.9% 1,000 ML IV SCH (05:29)
[2022-08-06] MEDS: HYDROcodone/APAP 5-325MG 1 EACH TAB PO PRN (06:34)
--- NOTE | 2022-08-06 07:08 | P.PN ---
Progress Note - Text Progress Note Date: 08/06/22 Postoperative day # 1 status post total knee arthroplasty, and adductor canal catheter placed for postoperative analgesia, currently at ropivacaine 0.2% 8 mL per hour and continuous infusion, visual analogue scale is 3/10, patient using oral pain medication for breakthrough pain. Assessment and plan= Acute postoperative pain, adductor canal catheter for pain control, pain is well controlled we'll continue the same management.
--- NOTE | 2022-08-06 07:47 | P.DS ---
Providers Date of admission: 08/05/22 11:44 Expected date of discharge: 08/06/22 Attending physician: Naren Up Consults: 08/05/22 13:49 Consult Physician Routine Consulting Provider: Daysi Sanford Consult Reason/Comments: medical management Do you want consulting provider notified?: Yes Primary care physician: Rafael Marcos - Discharge Diagnosis(es) (1) Status post revision of total replacement of left knee Current Visit: Yes Status: Acute (2) Status post total left knee replacement Current Visit: No Status: Acute Hospital Course: This is a 57-year-old [] who was last seen with complaint of continued left knee pain. The patient has a known history of Total left knee arthroplasty in the past with polyethylene wear and presents to discuss surgical options. After discussion and consideration the patient elects to proceed with Revision total left knee arthroplasty/ poly-exchange. The patient is seen preoperatively by His PCP and cleared for surgery. The patient is admitted to [facility] for Revision total left knee arthroplasty/Poly-exchange. The procedures performed without complication or sequelae. He is doing well postoperatively. Vital signs are stable at discharge. Labs are stable at discharge. the patient is ambulating well with walker with minimal assistance. The patient is discharged to home on postop day #1 pending medical clearance. Please see orders and refer to the [facility] rec for accurate list of medications. Patient Condition at Discharge: Good Plan - Discharge Summary Discharge Rx Participant: No New Discharge Prescriptions: New Sennosides [Senokot] 2 tab PO DAILY PRN #60 tablet PRN Reason: Constipation Aspirin 325 mg PO BID #60 tab HYDROcodone/APAP 7.5-325MG [[place] 7.5-325] 1 - 2 tab PO Q6H PRN #32 tab PRN Reason: Pain No Action dilTIAZem HCL [Cartia Xt] 300 mg PO DAILY Escitalopram [Lexapro] 5 mg PO HS hydroCHLOROthiazide 12.5 mg PO DAILY Naproxen Sodium [Aleve] 220 mg PO Q12HR PRN PRN Reason: Pain Discharge Medication List Escitalopram [Lexapro] 5 mg PO HS 08/02/19 [History] dilTIAZem HCL [Cartia Xt] 300 mg PO DAILY 08/02/19 [History] Naproxen Sodium [Aleve] 220 mg PO Q12HR PRN 10/31/19 [History] hydroCHLOROthiazide 12.5 mg PO DAILY 10/31/19 [History] Aspirin 325 mg PO BID #60 tab 08/05/22 [Rx] HYDROcodone/APAP 7.5-325MG [[place] 7.5-325] 1 - 2 tab PO Q6H PRN #32 tab 08/05/22 [Rx] Sennosides [Senokot] 2 tab PO DAILY PRN #60 tablet 08/05/22 [Rx] Follow up Appointment(s)/Referral(s): Naren Up DO [Doctor of Osteopathic Medicine] - 2 Weeks Activity/Diet/Wound Care/Special Instructions: Weightbearing as tolerated with walker. CPM 5-6 hours a day as tolerated. Leave dressing intact. Dressing may be removed by home care nurse or by patient in 7 days. Then change dressing twice daily until follow up. May shower with initial dressing intact and after removal. If dressing become saturated, please remove. Please take aspirin 325mg twice daily for 30 days to prevent blood clots. Recommend use of compression stockings daily until follow up to help prevent swelling and blood clots. May remove at night before sleeping. Please follow-up with [facility] in 2 weeks and call with any questions or concerns, . Discharge Disposition: HOME WITH HOME HEALTH SERVICES
[2022-08-06 08:52] LABS: Basophils % (A) 0 %; Eosinophils % (A) 0 %; HCT 45.4 % (39.0-53.0); Lymphocytes # (A) 1.2 k/uL (1.0-4.8); Lymphocytes % (A) 7 %; MCH 31.1 pg (25.0-35.0); MCHC 35.1 g/dL (31.0-37.0); MCV 88.7 fL (80.0-100.0); Mean Platelet Volume 7.6; Monocytes # (A) 0.9 k/uL (0-1.0); Monocytes % (A) 5 %; Neutrophils # (A) 15.3 k/uL (1.3-7.7); Neutrophils % (A) 87 %; Platelet Count 251 k/uL (150-450); RBC 5.12 m/uL (4.30-5.90); RDW 12.5 % (11.5-15.5); WBC 17.5 k/uL (3.8-10.6)
[2022-08-06] MEDS ORDERED: DILTIAZEM CD 300 MG CAP.ER.24H PO SCH (09:00)
[2022-08-06] MEDS ORDERED: hydroCHLOROthiazide 12.5 MG CAP PO SCH (09:00)
[2022-08-06 09:24] VITALS: BP 129/74; PULSE 81; RESP 18; TEMP 98.4
[2022-08-06 09:27] LABS: African American GFR (CKD) 95.1 (60.0-200.0); Anion Gap 12.3 mmol/L (10.00-18.00); BUN/Creat Ratio 15.3 Ratio (12.00-20.00); Blood Urea Nitrogen 15.3 mg/dL (9.0-27.0); Calcium 9.4 mg/dL (8.7-10.3); Carbon Dioxide 22.7 mmol/L (20.0-27.5)
[2022-08-06] MEDS: ASPIRIN 325 MG TAB PO SCH (09:31)
--- NOTE | 2022-08-06 13:23 | P.PN ---
Subjective Progress Note Date: 08/06/22 History of Presenting Illness: Patient is a very pleasant 57-year-old male with a past medical history of hypertension and osteoarthritis status post multiple previous orthopedic surgeries. He is currently admitted under orthopedic surgery team status post elective left total knee arthroplasty completed by Dr. Up. We have been consulted for medical management throughout patient's hospitalization. Physical exam: Patient seen and fully evaluated at bedside this morning. Patient reports feeling great this morning, he has been ambulating with PT/OT and even successfully completed the stairs. Patient denies having any concerns or complaints at this time. Vital signs reviewed and stable. General: Nontoxic, no distress and appears stated age. Derm: Skin warm and dry, normal coloration for ethnicity. Head: Atraumatic, normocephalic and symmetric. Eyes: EOMs intact, no lid lag, and anicteric sclera Mouth: no lip lesions, mucus membranes moist Cardiovascular: regular rate and rhythm with normal S1S2, no murmur, positive posterior tibial pulses bilaterally, and cap refill < 2 seconds. Lungs: Respirations even, regular, and unlabored on room air. Lungs CTA bilaterally, no rhonchi, no rales, no wheezing, and no accessory muscle usage. Abdominal: soft, nontender to palpation, no guarding, no appreciable organomegaly Ext: Movement and sensation intact. No gross muscle atrophy, no edema, no c ontractures. Postoperative Dressing in place to left lower extremity. Neuro: Speech clear, face symmetrical and CN II-XII grossly intact with no noted focal neuro deficits Psych: Alert and oriented to person, place, time, and situation. Appropriate and pleasant affect. Assessment and Plan of Care: Status post left total knee arthroplasty -DVT prophylaxis, pain management, wound/dressing care, weightbearing, and PT/OT per primary admitting orthopedic surgery team. -Currently DVT prophylaxis with MITUL hose and SCDs. Postoperative leukocytosis -Morning labs reviewed. CBC revealing leukocytosis with WBC count of 17.5 and a normal hemoglobin of 16.0 and platelet count of 251. Preoperative WBCs 8.37 and postoperative WBCs 17.5. Patient showing no signs of infection. Acute leukocytosis believed to be reactive from surgical procedure. Patient is medically stable at this time and free from any complaints. Patient given prescription for repeat CBC to be completed in 3 days to ensure improvement/resolution of acute leukocytosis. Results to be sent to PCP and orthopedic surgeon for follow-up. Hypertension -Blood Pressures stable. Morning BP 129/74. Patient to continue with current antihypertensive medication regimen with Cardizem 300 mg daily and hydrochlorothiazide 25 mg daily tomorrow morning. No need for medication changes at this time. Thank you for allowing us to participate in the care of this pleasant patient. Do not hesitate to contact us with questions. Someone can be reached from the [facility] hospitalist group all hours of the day at [phone] or via [employer]. Flash Loera NP rendered care for this patient independently, reviewed the findings and plan as documented in the note above. I did not physically speak with or examine the patient on this date. Objective - Vital Signs Vital signs: Vital Signs Temp 97.9 F 08/06/22 02:00 Pulse 73 08/06/22 02:00 Resp 16 08/06/22 02:00 BP 120/53 08/06/22 02:00 Pulse Ox 95 08/06/22 02:00 FiO2 Intake & Output 08/05/22 08/06/22 08/06/22 18:59 06:59 18:59 Intake Total 1536 Output Total 30 Balance 1506 Weight 105.3 kg Intake: IV 1056 Oral 480 Output: Urine 0 Estimated Blood Loss 30 Other: # Voids 2 - Labs CBC & Chem 7: 08/06/22 06:49 08/06/22 06:49
== END 2022-08-06 13:51 | disposition home health service (06) | DRG 489 ==
LOC: EDSTATUS 11:10 → 2ORMAIN 11:44 → 4SSUR 15:57
PROVIDERS: ADMIT Orthopaedic Surgery; ATTEND Orthopaedic Surgery
PROC: 0SUW09Z Supplement Left Knee Joint, Tibial Surface with Liner, Open Approach (ICD-10-PCS; 2022-08-05)
PROC: 3E0T3BZ Introduction of Anesthetic Agent into Peripheral Nerves and Plexi, Percutaneous Approach (ICD-10-PCS; 2022-08-05)
PROC: 0SPD09Z Removal of Liner from Left Knee Joint, Open Approach (ICD-10-PCS; principal; 2022-08-05 13:25)
DX: T84.023A Instability of internal left knee prosthesis, initial encounter (principal); D72.829 Elevated white blood cell count, unspecified; I10 Essential (primary) hypertension; M19.90 Unspecified osteoarthritis, unspecified site; Y79.2 Prosthetic and other implants, materials and accessory orthopedic devices associated with adverse incidents; Z96.653 Presence of artificial knee joint, bilateral; Z79.899 Other long term (current) drug therapy; Z79.82 Long term (current) use of aspirin; Z88.1 Allergy status to other antibiotic agents; Z88.0 Allergy status to penicillin
CPT/HCPCS: 64448; 64999; 76942; 80048; 85025

== ENCOUNTER 2022-08-06 21:26 | Emergency (ER) | payer MEDICARE, BC ==
[2022-08-06] MEDS ORDERED: SODIUM CHLORIDE 0.9% 1,000 ML IV ONE (21:37)
[2022-08-06 21:38] VITALS: BP 157/79; PULSE 73; RESP 18; TEMP 98.5
[2022-08-06] MEDS ORDERED: KETOROLAC 15 MG/ML 1 ML VIAL IVP STA (21:38)
[2022-08-06] MEDS ORDERED: DEXAMETHASONE SOD PHOSPHATE 10 MG/ML 1 ML VIAL IVP STA (21:38)
[2022-08-06 22:15] LABS: Basophils % (A) 0 %; Eosinophils # (A) 0.1 k/uL (0-0.7); Eosinophils % (A) 0 %; HCT 46.9 % (39.0-53.0); HGB 16.4 gm/dL (13.0-17.5); Lymphocytes # (A) 1.8 k/uL (1.0-4.8); Lymphocytes % (A) 11 %; MCH 30.6 pg (25.0-35.0); MCHC 34.9 g/dL (31.0-37.0); MCV 87.8 fL (80.0-100.0); Mean Platelet Volume 7.4; Monocytes # (A) 0.9 k/uL (0-1.0); Monocytes % (A) 6 %; Neutrophils # (A) 13.5 k/uL (1.3-7.7); Neutrophils % (A) 82 %; Platelet Count 251 k/uL (150-450); RBC 5.34 m/uL (4.30-5.90); RDW 12.5 % (11.5-15.5); WBC 16.5 k/uL (3.8-10.6)
[2022-08-06 22:27] LABS: ALT 27 U/L (4-49); AST 21 U/L (17-59); African American GFR (CKD) >90 (>60 ml/min/1.73 sqM); Albumin 4.2 g/dL (3.5-5.0); Alkaline Phosphatase 54 U/L (38-126); Anion Gap 12 mmol/L; Blood Urea Nitrogen 12 mg/dL (9-20); Calcium 8.8 mg/dL (8.4-10.2); Carbon Dioxide 27 mmol/L (22-30); Chloride 99 mmol/L (98-107); Glucose 108 mg/dL (74-99); Non-African American GFR(CKD) >90 (>60 ml/min/1.73 sqM); Potassium 3.7 mmol/L (3.5-5.1); Sodium 138 mmol/L (137-145); Total Bilirubin 0.5 mg/dL (0.2-1.3); Total Protein 6.9 g/dL (6.3-8.2)
[2022-08-06 23:11] LABS: Erythrocyte Sedimentation Rate 2 mm/hr (0-15)
--- NOTE | 2022-08-07 00:08 | ED ---
General Adult HPI - General Chief complaint: Headache Stated complaint: Headache Time Seen by Provider: 08/06/22 21:36 Source: patient, EMS Mode of arrival: EMS Limitations: no limitations - History of Present Illness Initial comments: This is a 57-year-old male who presents emergency department for a right-sided headache. The patient did present via EMS. The patient did undergo a right knee replacement and revision 25 hours ago and stated that he was just discharged home at 2:30 in the afternoon. The patient stated that when he got home he had continued right-sided neck and right-sided head pain associated with pain behind the right eye. The patient denied any lightheadedness or dizziness as well as any nausea and vomiting. The patient did state that he does not normally have headaches but stated this headache was severe. The patient denied any numbness or tingling or any pain over the spine. The patient also denied any pain in his left knee. The patient was resting in bed comfortably. - Related Data Home Medications Medication Instructions Recorded Confirmed Escitalopram [Lexapro] 5 mg PO HS 08/02/19 07/29/22 dilTIAZem HCL [Cartia Xt] 300 mg PO DAILY 08/02/19 08/05/22 Naproxen Sodium [Aleve] 220 mg PO Q12HR PRN 10/31/19 07/29/22 hydroCHLOROthiazide 12.5 mg PO DAILY 10/31/19 07/29/22 Previous Rx's Medication Instructions Recorded Aspirin 325 mg PO BID #60 tab 08/05/22 HYDROcodone/APAP 7.5-325MG [[place] 1 - 2 tab PO Q6H PRN #32 tab 08/05/22 7.5-325] Sennosides [Senokot] 2 tab PO DAILY PRN #60 tablet 08/05/22 Allergies Allergy/AdvReac Type Severity Reaction Status Date / Time cephalexin monohydrate Allergy Severe Dyspnea Verified 07/29/22 16:12 [From Keflex] Penicillins Allergy Severe Dyspnea Verified 07/29/22 16:12 Review of Systems ROS Statement: Those systems with pertinent positive or pertinent negative responses have been documented in the HPI. ROS Other: All systems not noted in ROS Statement are negative. Past Medical History Past Medical History: Hypertension, Osteoarthritis (OA) Additional Past Medical History / Comment(s): . History of Any Multi-Drug Resistant Organisms: None Reported Past Surgical History: Hernia Repair, Joint Replacement, Orthopedic Surgery Additional Past Surgical History / Comment(s): ARTHROSCOPIES RT KNEE x 3, RT KNEE REPLACED X2, arthroscopy left knee, LT TKA X 2 Past Anesthesia/Blood Transfusion Reactions: Previous Problems w/ Anesthesia Additional Past Anesthesia/Blood Transfusion Reaction / Comment(s): HAD POST OP ITCHING AFTER ONE SURGERY Past Psychological History: Anxiety Smoking Status: Never smoker - Past Family History Mother Family Medical History: No Reported History Father Family Medical History: Cancer General Exam Limitations: no limitations General appearance: alert, in no apparent distress Head exam: Present: atraumatic, normocephalic, normal inspection, other (Patient had tenderness noted to the right side of scalp, right temporal area as well as the right paraspinal muscles in the cervical spine.) Eye exam: Present: normal appearance, PERRL Pupils: Present: normal accommodation ENT exam: Present: normal exam, normal oropharynx, mucous membranes moist Neck exam: Present: normal inspection, full ROM Respiratory exam: Present: normal lung sounds bilaterally Cardiovascular Exam: Present: regular rate, normal rhythm, normal heart sounds GI/Abdominal exam: Present: soft, normal bowel sounds Extremities exam: Present: normal inspection, full ROM, other (Left knee bandaged without any signs of erythema or induration or drainage.) Back exam: Present: normal inspection, full ROM. Absent: tenderness, CVA tenderness (R), CVA tenderness (L), paraspinal tenderness, vertebral tenderness Neurological exam: Present: alert, oriented X3, CN II-XII intact Psychiatric exam: Present: normal affect, normal mood Skin exam: Present: warm, dry Course Vital Signs 08/06/22 21:33 Temperature 98.5 F Pulse Rate 73 Respiratory 18 Rate Blood Pressure 157/79 O2 Sat by Pulse 96 Oximetry Medical Decision Making - Medical Decision Making Was pt. sent in by a medical professional or institution (, PA, FIELD TRAINING MANAGER, urgent care, hospital, or residential...) When possible be specific @ -No Did you speak to anyone other than the patient for history (EMS, parent, family, police, friend...)? What history was obtained from this source @ -Yes, EMS and patient's Did you review nursing and triage notes (agree or disagree)? Why? @ -I reviewed and agree with nursing and triage notes Were old charts reviewed (outside hosp., previous admission, EMS record, old EKG, old radiological studies, urgent care reports/EKG's, residential records)? Report findings @ -No old charts were reviewed Differential Diagnosis (chest pain, altered mental status, abdominal pain women, abdominal pain men, vaginal bleeding, weakness, fever, dyspnea, syncope, headache, dizziness, GI bleed, back pain, seizure, CVA, palpatations, mental health)? @ -Headache, muscle strain, migraine EKG interpreted by me (3pts min.). @ -None X-rays interpreted by me (1pt min.). @ -None done CT interpreted by me (1pt min.). @ -None done U/S interpreted by me (1pt. min.). @ -None done What testing was considered but not performed or refused? (CT, X-rays, U/S, labs)? Why? @ -None What meds were considered but not given or refused? Why? @ -None Did you discuss the management of the patient with other professionals (professionals i.e. , PA, FIELD TRAINING MANAGER, lab, RT, psych nurse, social media coordinator, machine stacker, teacher, armoured corps officer, window caser)? Give summary @ -No Was smoking cessation discussed for >3mins.? @ -No Was critical care preformed (if so, how long)? @ -No Were there social determinants of health that impacted care today? How? (Homelessness, low income, unemployed, alcoholism, drug addiction, transportation, low edu. Level, literacy, decrease access to med. care, skilled nursing, rehab)? @ -No Was there de-escalation of care discussed even if they declined (Discuss DNR or withdrawal of care, Hospice)? DNR status @ -No What co-morbidities impacted this encounter? (DM, HTN, Smoking, COPD, CAD, Cancer, CVA, ARF, Chemo, Hep., AIDS, mental health diagnosis, sleep apnea, morbid obesity)? @ -Recent left knee replacement Was patient admitted / discharged? Hospital course, mention meds given and route, prescriptions, significant lab abnormalities, going to OR and other pertinent info. @ -The patient was seen and evaluated emergency department. Physical exam, the patient only had mild right-sided paraspinal tenderness over the cervical spine as well as right-sided temporal tenderness. The patient denied of any concerning signs including any back pain nor any numbness or tingling noted. The patient also denied any urinary or fecal incontinence. The patient was likely suffering from a headache and therefore was given a dose of Toradol and Decadron as well as fluids in the emergency department. On reevaluation, the patient had significant improvement of his headache and was deemed stable for discharge. The patient also had a swab for COVID-19, influenza and RSV which was negative. The patient was advised to continue take his medications as prescribed and to follow-up with his surgeon as previously scheduled. The patient was also advised report back to the emergency department if he had worsening pain. The patient was agreeable to this and all his questions were answered. The patient was discharged home in stable condition. Undiagnosed new problem with uncertain prognosis? @ -No Drug Therapy requiring intensive monitoring for toxicity (Heparin, Nitro, Insulin, Cardizem)? @ -No Were any procedures done? @ -No Diagnosis/symptom? @ -Headache, NOS Acute, or Chronic, or Acute on Chronic? @ -Acute Uncomplicated (without systemic symptoms) or Complicated (systemic symptoms)? @ -Uncomplicated Side effects of treatment? @ -No Exacerbation, Progression, or Severe Exacerbation? @ -No Poses a threat to life or bodily function? How? (Chest pain, [place], AR, pneumonia, PE, COPD, DKA, ARF, appy, cholecystitis, CVA, Diverticulitis, Homicidal, Suicid al, threat to staff... and all critical care pts) @ -No - Lab Data Result diagrams: 08/06/22 22:03 08/06/22 22:03 Lab Results 08/06/22 08/06/22 08/06/22 Range/Units 22:03 22:03 22:54 WBC 16.5 H (3.8-10.6) k/uL RBC 5.34 (4.30-5.90) m/uL Hgb 16.4 (13.0-17.5) gm/dL Hct 46.9 (39.0-53.0) % MCV 87.8 (80.0-100.0) fL MCH 30.6 (25.0-35.0) pg MCHC 34.9 (31.0-37.0) g/dL RDW 12.5 (11.5-15.5) % Plt Count 251 (150-450) k/uL MPV 7.4 Neutrophils % 82 % Lymphocytes % 11 % Monocytes % 6 % Eosinophils % 0 % Basophils % 0 % Neutrophils # 13.5 H (1.3-7.7) k/uL Lymphocytes # 1.8 (1.0-4.8) k/uL Monocytes # 0.9 (0-1.0) k/uL Eosinophils # 0.1 (0-0.7) k/uL Basophils # 0.0 (0-0.2) k/uL ESR 2 (0-15) mm/hr Sodium 138 (137-145) mmol/L Potassium 3.7 (3.5-5.1) mmol/L Chloride 99 (98-107) mmol/L Carbon Dioxide 27 (22-30) mmol/L Anion Gap 12 mmol/L BUN 12 (9-20) mg/dL Creatinine 0.80 (0.66-1.25) mg/dL Est GFR (CKD-EPI)AfAm >90 (>60 ml/min/1.73 sqM) Est GFR (CKD-EPI)NonAf >90 (>60 ml/min/1.73 sqM) Glucose 108 H (74-99) mg/dL Calcium 8.8 (8.4-10.2) mg/dL Magnesium 2.0 (1.6-2.3) mg/dL Total Bilirubin 0.5 (0.2-1.3) mg/dL AST 21 (17-59) U/L ALT 27 (4-49) U/L Alkaline Phosphatase 54 (38-126) U/L Total Protein 6.9 (6.3-8.2) g/dL Albumin 4.2 (3.5-5.0) g/dL Influenza Type A (PCR) Not Detected (Not Detectd) Influenza Type B (PCR) Not Detected (Not Detectd) RSV (PCR) Not Detected (Not Detectd) SARS-CoV-2 (PCR) Not Detected (Not Detectd) Disposition Clinical Impression: Headache Disposition: HOME SELF-CARE Condition: Stable Instructions (If sedation given, give patient instructions): Acute Headache (ED) Is patient prescribed a controlled substance at d/c from ED?: No Referrals: Rafael Marcos DO [Primary Care Provider] - 1-2 days Time of Disposition: 23:30
== END 2022-08-07 04:18 | disposition home or self-care (01) ==
LOC: EC 21:26
DX: R51.9 Headache, unspecified (principal); I10 Essential (primary) hypertension; M19.90 Unspecified osteoarthritis, unspecified site; F41.9 Anxiety disorder, unspecified; Z88.0 Allergy status to penicillin; Z88.1 Allergy status to other antibiotic agents; Z79.899 Other long term (current) drug therapy; Z20.822 Contact with and (suspected) exposure to COVID-19
CPT/HCPCS: 36415; 80053; 85652; 83735; 85025; 87636; 99284; 96374; 96375; 96361; J1100; J1885